=== PATIENT | male | born 1955 | race Caucasian/White ===

== ENCOUNTER 2019-06-14 09:15 | Emergency (ER) | payer BC, SELFPAY ==
[2019-06-14] MEDS ORDERED: Lidocaine 2% PF 5 ML VIAL ONE (09:37)
[2019-06-14] MEDS ORDERED: Lidocaine 1% PF 5 ML VIAL ONE (09:42)
[2019-06-14] MEDS ORDERED: Triple Antibiotic Oint 1 GM Packet ONE ×2 (10:08→10:09)
[2019-06-14] MEDS ORDERED: Adacel (T-DAP) 0.5 ML SYRINGE ONE (10:18)
== END 2019-06-14 10:22 | disposition home or self-care (01) ==
LOC: BURERS 09:15
DX: S61.210A Laceration without foreign body of right index finger without damage to nail, initial encounter (principal); F17.220 Nicotine dependence, chewing tobacco, uncomplicated; W26.0XXA Contact with knife, initial encounter
CPT/HCPCS: 12002; 90715; J2001